=== PATIENT | female | born 1995 | race Caucasian/White ===

== ENCOUNTER 2019-01-06 19:14 | Emergency (ER) | payer BC ==
--- NOTE | 2019-01-06 19:16 | ER Report ---
History and Physical Time Seen By MD: 19:12 HPI/ROS CHIEF COMPLAINT: Postop rash HISTORY OF PRESENT ILLNESS: Patient presents emergency Department with concerns over rash to her elbow and axillary area that developed today. She recently had laparoscopic shoulder surgery. She does admit to some difficulty with adhesives and thinks perhaps maybe I was the he says from her dressing that caused the rash. There was concern however from the patient's mother that this could represent an infectious type of rash like MRSA. Patient states the rash is itchy she had been using hydrocortisone to the area but was concerned enough about the rash that she came to the emergency department for evaluation. She reports no chest pain or shortness of breath no nausea vomiting or diarrhea. No fevers or chills. Allergies: Coded Allergies: No Known Drug Allergies (Unverified , 01/06/19) Home Meds Active Scripts Famotidine (PEPCID) 20 Mg Tablet, 20 MG PO QDAY, #10 TAB 0 Refills Prov:ELISABETH CHAUDHRY MD 01/06/19 Past Medical/Surgical History Recent shoulder surgery Constitutional Vital Sign - Last 24 Hours 01/06/19 01/06/19 19:14 19:19 Temp 98.9 Pulse 78 78 Resp 16 B/P (MAP) 116/84 (95) 116/84 Pulse Ox 97 97 O2 Delivery Room Air Physical Exam General appearance: Alert no distress. Skin: The antecubital fossa there is an area of wheal and flare. There is also an area to the anterior axillary fold as well as the posterior shoulder and these areas are consistent with where adhesive material had been placed postsurgery. The patient's surgical site looks well clean dry and intact no discharge or erythema. Medical Decision Making ED Course/Re-evaluation ED Course 01/06/2019 7:22:53 pm patient with likely contact dermatitis and hives. We'll treat with oral Benadryl and Pepcid have the patient continue topical steroids but we will not prescribe oral steroids due to her recent surgery. Decision to Disposition Date: Jan 06, 2019 Decision to Disposition Time: 19:40 Depart Departure Latest Vital Signs Vital Signs Date Time Temp Pulse Resp B/P (MAP) Pulse Ox O2 Delivery O2 Flow Rate FiO2 01/06/19 19:19 98.9 78 16 116/84 97 Room Air Impression: Primary Impression: Hives Condition: Improved Disposition: HOME OR SELF-CARE New Scripts Famotidine (PEPCID) 20 Mg Tablet 20 MG PO QDAY, #10 TAB 0 Refills Prov: ELISABETH CHAUDHRY MD 01/06/19 Patient Instructions: Urticaria (ED) Additional Instructions: Take [id number] Benadryl as directed for symptoms of rash and itching. Continue topical hydrocortisone 2-3 times today to the rash area. ELISABETH CHAUDHRY MD Jan 06, 2019 19:16
[2019-01-06 19:19] VITALS: BP 116/84
[2019-01-06] MEDS ORDERED: diphenhydrAMINE 25 MG CAP PO ONE (19:25)
[2019-01-06] MEDS ORDERED: FAMOTIDINE 20 MG TAB PO ONE (19:25)
[2019-01-06] MEDS ORDERED: FAMO20TA28 PO (19:29)
== END 2019-01-06 19:46 | disposition home or self-care (01) ==
LOC: ER 19:27
DX: L50.9 Urticaria, unspecified (principal)
CPT/HCPCS: 99283; Q0163